=== PATIENT | female | born 1955 | race Caucasian/White ===

== ENCOUNTER 2019-03-13 11:48 | Outpatient (CLI) | payer OTHER ==
[~2019-03-13 11:48] MED LIST: D3-5050000 UNIT; GABAPENTIN300 MG PO; GLIPIZIDE10 MG PO; HUMULIN SC; LANTUS100 U/ML; LISINOPRIL10 MG PO; SIMVASTATIN40 MG PO; ZOLOFT100 MG PO; [UNRECOGNIZED DRUG - OTHER] PO
== END 2019-03-13 11:55 | disposition home or self-care (01) ==
LOC: LAB 11:48
DX: K92.1 Melena (principal); D12.0 Benign neoplasm of cecum; Z86.010 Personal history of colon polyps

== ENCOUNTER 2019-03-24 06:37 | Day surgery (SDC) | payer OTHER | END 2019-03-24 13:20 | disposition home or self-care (01) | LOC: AMB-ENDOS 06:37 | DX: K64.1 Second degree hemorrhoids (principal) ==